=== PATIENT | female | born 1960 | race Caucasian/White ===

== ENCOUNTER → 2020-07-03 02:07 | Outpatient (CLI) | payer OTHER, SELFPAY ==
[2020-07-04 14:52] LABS: SARS-CoV-2 RNA PCR Negative
== END ==
PROVIDERS: Visit Provider Orthopaedic Surgery
DX: Z01.812 Encounter for preprocedural laboratory examination (principal); Z20.822 Contact with and (suspected) exposure to COVID-19
CPT/HCPCS: C9803; U0003; U0005

== ENCOUNTER 2020-07-06 02:08 | Day surgery (SDC) | payer OTHER, SELFPAY ==
[2020-06-30 10:52] VITALS: BMI 27.9
[2020-07-06] VITALS (9 sets, daily range): BP systolic 117–142; BP diastolic 59–74; PULSE 71–83; RESP 14–20; TEMP 36.7–37; O2SAT 99–100
[2020-07-06] MEDS: ACETAMINOPHEN 500 MG TABLET 1000 MG PO (08:36)
[2020-07-06] MEDS: LACTATED RINGERS 1,000 ML 30 ML IV CONT ×2 (08:43→10:43)
[2020-07-06] MEDS: KETOROLAC 15 MG/ML VIAL (*BKC) IV PUSH (08:45)
--- NOTE | 2020-07-06 09:22 | P.PNAN_ITS ---
Anes - Initial Pre Proc Eval Procedure: Operation Date: 07/06/20 10:00 Proposed Procedures p Arthroscopic Left Partial Medial Meniscectomy - Timur Tripathi MD Date/Time: 07/06/20 09:22 Surgeon: Timur Tripathi MD Pre Op Diagnosis: medial meniscus tear left knee Patient Data Age: 59 Gender: F Height: 5 ft 9 in Weight: 82.2 kg Last Vital Signs Temp 98.6 F 07/06/20 08:49 Pulse 73 07/06/20 08:49 BP 134/59 L 07/06/20 08:49 Pulse Ox 100 07/06/20 08:49 Allergies Allergy/AdvReac Type Severity Reaction Status Date / Time No Known Allergies Allergy Verified 07/06/20 08:47 Home Medications Medication Instructions Recorded Confirmed Type Tylenol Arthritis 1,000 mg PO BID 06/30/20 07/06/20 History diphenhydramine HCl [Benadryl] 25 mg PO DAILY 06/30/20 06/30/20 History ibuprofen 800 mg PO DAILY 06/30/20 06/30/20 History magnesium 500 mg PO DAILY 06/30/20 07/06/20 History Patient hx anesthesia problems: none Family hx anesthesia problems: none [facility] Past Medical History Medical History (Updated 06/21/20 @ 08:47 by Alma Jordan MA) History of torn meniscus of left knee (~2015) Social History Social History (Updated 06/21/20 @ 08:46 by Alma Jordan MA) Smoking packs per day: 1 Smoking cigarettes per day: 20.0 Smoking status: Heavy tobacco smoker Tobacco type: cigarettes Additional smoking assessment comments: 1 ppd [id number] Alcohol intake: current Drinks per week: 5 Alcohol use details: socially Living arrangements: with family Spiritual care concerns: No Anes - Eval Final PreProcedure Day of Procedure 07/06/20 09:22 Patient weight: overweight Heart: regular rate and rhythm Lungs: clear to auscultation Airway: Mallampati scale class II Neurological: alert and oriented Last oral intake: >/= 8 hours ASA classification: II Emergent: no Anesthetic plan: proceed Anesthesia type and monitoring: general LMA and standard monitoring Informed Consent: The patient's anesthetic plan and its attendant risks and benefits were discussed with the patient/family/POA. Questions were solicited and answers provided to the satisfaction of the patient/family/POA.
--- NOTE | 2020-07-06 09:32 | WPDHPUPDATE1 ---
History and Physical Update Update Date/Time: 07/06/20 09:32 History and Physical has been reviewed, including an updated exam of the patient. There are NO changes in the patient's condition. Risks, benefits, and alternatives have been discussed and questions answered. Patient agrees to proceed with procedure.
[2020-07-06] MEDS: ceFAZolin 2 GM/D5W 50 ML 2 GM/50 ML BAG IVPB (09:50)
[2020-07-06] MEDS: BUPIVACAINE/EPINEPHRINE 0.5% 30 ML VIAL 20 ML INFILTRATE (10:11)
--- NOTE | 2020-07-06 11:08 | PM.PROC ---
Procedure Note - Detailed Date of procedure: 07/06/20 Pre-op diagnosis: medial meniscus tear left knee Medial meniscus tear. Post-op diagnosis: other ( 1. Medial meniscus tear posterior horn 2. Intercondylar notch osteophyte with anterior cruciate ligament impingement and degeneration. 3. Medial synovial plica) Procedure performed: 1.Arthroscopic partial medial meniscectomy 2. Debridement of intercondylar notch osteophyte 3. Medial synovial plica excision Description of procedure: The posterior horn medial meniscus had a moderate radial type tear. Debridement was performed. The rest of the meniscus looked fairly healthy. 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 The anterior cruciate ligament showed some degeneration which was consistent with the MRI. There was a moderate sized osteophyte at the notch impinging on the lateral meniscus. This was debrided and smoothed with the arthroscopic rasp. The lateral meniscus was normal. The tibia was very soft at the weight-bearing portion and there was an area at the medial anterior lateral tibia that was exposed to bone. Patella showed grade 1/2 chondromalacia as did the trochlea. There was a mild to moderate synovitis. The medial synovial plica was quite pronounced. There was some evidence of fraying at the medial femoral condyle although this was fairly subtle. Also some degeneration and impingement appearing at the inferomedial patella along the plica. It was elected to debride this, mostly at the area of potential impingement near the medial patella and medial femoral condyle. After partial debridement the plica appeared to be nonpathologic and was left in situ. Anesthesia: [facility] Surgeon: Timur Tripathi MD Apartment Rental Agent: Emely Olivia PA-C Estimated blood loss (mL): 5 Tourniquet time (min): 23 Complications: None Condition: stable Disposition: PACU Findings: Procedure Details: The patient was identified and the surgical site confirmed and signed in the preoperative holding area. Antibiotics were started per protocol. She was brought to the operative room and transferred to the OR table. A general anesthetic was administered. Supine position with the operative lower extremity position in the leg anand after placement of a well padded tourniquet. The leg support was lowered and the contralateral limb was supported with a soft bolster. The knee was prepped and draped in the usual sterile fashion. A time-out was performed. The portal sites were marked and infiltrated with 0.5% Marcaine 20 mL. The limb was exsanguinated and the tourniquet inflated to 300 mL Hg. Standard inferolateral and inferomedial portals were established. Inflow was obtained with the saline pump. The camera was introduced. Diagnostic inspection of the joint was accomplished. The meniscus was debrided with the arthroscopic shaver and punches until stable. The anterior cruciate ligament had some mild fraying and was a bit soft. It was easy to put the shaver into the substance. There was evidence of degenerative cystic changes on the MRI. Careful and brief debridement was performed with the shaver in the substance of the tendon. There appeared to be some fraying and irritation along the lateral portion of the ACL where there was a small spur on the lateral femoral condyle. This was treated with the shaver on forward setting and then the rasp to smooth and create plenty of space for the ACL. The lateral tibia in this area also showed grade 4 chondromalacia with some subtle fraying of the meniscus although the meniscus anteriorly was healthy in appearance overall. The tibial cartilage was soft to probing with the tip of the probe easily being buried into the fissures. Otherwise the compartment did not appear to be significantly pathologic. Medial plica had no obvious pathology but did appear to be impinging at the inferomedial patella and there was subtle fraying along the medial femoral condyle at mid fle
== END 2020-07-06 12:35 | disposition home or self-care (01) ==
PROVIDERS: Visit Provider Orthopaedic Surgery
PROC: (CPT 29870; principal; 2020-07-06 10:00)
DX: M23.322 Other meniscus derangements, posterior horn of medial meniscus, left knee (principal); M65.862 Other synovitis and tenosynovitis, left lower leg; M25.762 Osteophyte, left knee; M94.262 Chondromalacia, left knee; F17.210 Nicotine dependence, cigarettes, uncomplicated
CPT/HCPCS: 29881; A9270; C9803; J0690; J1885; J2250; J2405; J2704; J3010; J7120; U0003; U0005

== ENCOUNTER 2020-09-27 12:19 | Emergency (ER) | payer OTHER, SELFPAY ==
--- NOTE | ~2020-09-27 | XR_ITS ---
EXAMINATION: XR chest 2V DATE: 09/27/2020 12:45 INDICATION: Shortness of breath TECHNIQUE: PA and lateral views of the chest are obtained. COMPARISON: None available FINDINGS: There are minimal airspace opacities of the lung bases. There is no pleural effusion or pne umothorax. The cardiomediastinal silhouette is normal. There is moderate thoracic spondylosis. There is an age-indeterminate L1 compression fracture with one quarter anterior vertebral height loss. IMPRESSION: 1. Minimal airspace opacities of the lung bases, consistent with atelectasis versus pneumonia. 2. Age-indeterminate L1 compression fracture. Reviewed, dictated and finalized at location A. IMPRESSION: 1. Minimal airspace opacities of the lung bases, consistent with atelectasis ve rsus pneumonia. 2. Age-indeterminate L1 compression fracture.
--- NOTE | 2020-09-27 12:37 | ED.GENADULT ---
HPI - General Adult General Chief complaint: Upper Respiratory Infection Stated complaint: SOB/COUGH/WHEEZING Source: patient Mode of arrival: ambulatory Limitations: no limitations History of Present Illness HPI narrative: 60 y/o female. PMHx includes: None reported. Presents to [facility] today with acute complaints of continued cough, chest congestion, and intermittent dyspnea for the past 7 days. She is a daily cigarette smoker, 1/2 PPD. No fever, chills. No chest pain, palpitations, edema. Intermittent wheezing, no stridor or hemapytosis. She reports to have been seen at [facility] 7 days ago when s/s started, had chest imaging that revealed PNA, and has been resuming Doxycycline regimen as OP. She tells me her Doxycycline regimen was for 10 days, 3 days left to go until she achieves full completion. She also tells me she had a steroid pack that was helping , but she finished it. Client was Covid 19 tested at [facility], has documents showing that this was negative. She has a copy of Plain film chest Xray revealing Bibasilar PNA, no additional acute cardiopulmonary abnormality. She tells me she feels only a bit better, and is requesting something to aid with residual cough. Client is w/o additional acute c/o upon PE. Related Data Home Medications Medication Instructions Recorded Confirmed Tylenol Arthritis 1,000 mg PO BID 06/30/20 09/27/20 diphenhydramine HCl [Benadryl] 25 mg PO DAILY 06/30/20 09/27/20 ibuprofen 800 mg PO DAILY 06/30/20 09/27/20 magnesium 500 mg PO DAILY 06/30/20 09/27/20 albuterol sulfate 1 puff INHALATION Q4H PRN 09/27/20 09/27/20 benzonatate 100 mg PO TID PRN 09/27/20 09/27/20 doxycycline hyclate 100 mg PO BID 09/27/20 09/27/20 Allergies Allergy/AdvReac Type Severity Reaction Status Date / Time No Known Allergies Allergy Verified 09/27/20 12:35 Review of Systems Review of Systems: CONSTITUTIONAL: Denies fever, chills, sweats. EYES: Denies visual changes, redness, discharge. ENT: Positive rhinorrhea, congestion. No sore throat, otalgia. CARDIOVASCULAR: Denies chest pain, palpitations, edema. RESPIRATORY: Positive intermittent dyspnea, wheezing, cough GASTROINTESTINAL: Denies abdominal pain, nausea, vomiting, diarrhea. GENITOURINARY: Denies dysuria, hematuria, abnormal discharge SKIN: Denies rash or itching. MUSCULOSKELETAL: Denies acute back pain, joint pain, or myalgia. NEUROLOGIC: Denies numbness, or focal weakness. PSYCHIATRIC: Denies anxiety or depression. All systems reviewed & are unremarkable except as noted in HPI and below PMFSH Past Medical History Medical History History of torn meniscus of left knee (~2016) Social History Social History Smoking packs per day: 1 Smoking cigarettes per day: 20.0 Smoking status: Heavy tobacco smoker Tobacco type: cigarettes Additional smoking assessment comments: 1 ppd [id number] Alcohol intake: current Drinks per week: 5 Alcohol use details: socially Spiritual care concerns: No Exam Narrative: GENERAL: This is a well-nourished, well-developed adult, in no apparent distress. HEAD: normocephalic, atraumatic. EYES: PERRL. Sclera clear/white. EARS: External ears normal, auditory canals clear and without drainage, TMs normal. NOSE: External nose normal. Positive Rhinorrhea, no obstruction, nares patent. THROAT: Mucous membranes moist, posterior pharynx clear. No exudates. NECK: Neck supple, non-tender without lymphadenopathy, masses or thyromegaly. CARDIOVASCULAR: Regular rate and rhythm without murmurs, gallops, or rubs. RESPIRATORY: Breath sounds equal bilaterally. No wheezes, rales. There is upper airway expiratory rhonchi, semi cleared with cough. GASTROINTESTINAL: Abdomen soft, non-tender, nondistended. Bowel sounds are active. No guarding. SKIN: warm, intact with no suspicious lesi
[2020-09-27 13:15] VITALS: BP 142/63; PULSE 82; RESP 16; TEMP 36.6; O2SAT 100
== END 2020-09-27 13:18 | disposition home or self-care (01) ==
PROVIDERS: Emergency Provider Nurse Practitioner Adult Health
DX: J18.9 Pneumonia, unspecified organism (principal); F17.210 Nicotine dependence, cigarettes, uncomplicated
CPT/HCPCS: 71046; 99213; G0463